=== PATIENT | male | born 1960 | race Caucasian/White ===

== ENCOUNTER 2018-01-02 22:43 | Inpatient (IN) | payer OTHER ==
[2018-01-02 23:39] VITALS: BMI 27.3
[2018-01-03] MEDS ORDERED: SODIUM CHLORIDE 0.9% 1000 ML INFUS.BAG IV ONE
[2018-01-03] MEDS ORDERED: LORazepam 2 MG/ML SDV VIAL ONE ×4 (00:05→12:27)
--- NOTE | 2018-01-03 00:20 | PDOC ---
History of Present Illness - General History Source: Patient Exam Limitations: No Limitations - History of Present Illness Initial Comments: 01/03/18 00:26 The patient is a 57 year old male, who was currently at [facility] requesting detox with a significant PMH of alcohol abuse who presents to the emergency department with alcohol intoxication and tachycardia. Patient was at [facility] requesting detox and was sent in for evaluation of tachycardia. Patient has a heart rate of 122 here in the ER. Patient states his last drink was 6-7 hours ago. As per the , patient has been abusing ambien but has run out of it at home. The patient denies chest pain, shortness of breath, headache and dizziness. Denies fever, chills, nausea, vomit, diarrhea and constipation. Denies dysuria, frequency, urgency and hematuria. Allergies: NKA Past surgical history: None reported. Social history: No reported alcohol, drug or cigarette use. <Cheryl Pisano - Last Filed: 01/03/18 00:28> - General History Source: Patient Exam Limitations: No Limitations <Luda Sears - Last Filed: 01/03/18 03:09> - General Chief Complaint: Tachycardia Stated Complaint: CHEST PAIN Time Seen by Provider: 01/02/18 23:17 Past History <Cheryl Pisano - Last Filed: 01/03/18 00:28> - Suicide/Smoking/Psychosocial Hx Smoking History: Former smoker Have you smoked in the past 12 months: No Information on smoking cessation initiated: No Hx Alcohol Use: No Drug/Substance Use Hx: No <Luda Sears - Last Filed: 01/03/18 03:09> - Past Medical History Allergies/Adverse Reactions: Allergies Allergy/AdvReac Type Severity Reaction Status Date / Time No Known Allergies Allergy Verified 01/02/18 23:23 Home Medications: Ambulatory Orders NK [No Known Home Medication] 01/02/18 Review of Systems - Review of Systems Able to Perform ROS?: Yes Comments:: 01/03/18 00:27 ADULT ROS GENERAL/CONSTITUTIONAL: No fever or chills. No weakness. HEAD, EYES, EARS, NOSE AND THROAT: No change in vision. No ear pain or discharge. No sore throat. CARDIOVASCULAR: No chest pain or shortness of breath. RESPIRATORY: No cough, wheezing, or hemoptysis. GASTROINTESTINAL: No nausea, vomiting, diarrhea or constipation. GENITOURINARY: No dysuria, frequency, or change in urination. MUSCULOSKELETAL: No joint or muscle swelling or pain. No neck or back pain. SKIN: No rash NEUROLOGIC: No headache, vertigo, loss of consciousness, or change in strength/ sensation. ENDOCRINE: No increased thirst. No abnormal weight change. HEMATOLOGIC/LYMPHATIC: No anemia, easy bleeding, or history of blood clots. ALLERGIC/IMMUNOLOGIC: No hives or skin allergy. <Cheryl Pisano - Last Filed: 01/03/18 00:28> *Physical Exam - Vital Signs Last Vital Signs Temp Pulse Resp BP Pulse Ox 97.7 F 121 H 18 116/80 98 01/02/18 22:43 01/02/18 22:43 01/02/18 22:43 01/02/18 22:43 01/02/18 22:43 - Physical Exam Comments: 01/03/18 00:27 on exam pt is awake, pacing, tremulous. lungs are clear bilaterally heart reg tachycardia. no mrg. abd soft nt nd. ext wwp.l atraumatic. <Cheryl Pisano - Last Filed: 01/03/18 00:28> - Vital Signs Last Vital Signs Temp Pulse Resp BP Pulse Ox 97.7 F 121 H 18 116/80 98 01/02/18 22:43 01/02/18 22:43 01/02/18 22:43 01/02/18 22:43 01/02/18 22:43 <Luda Sears - Last Filed: 01/03/18 03:09> Moderate Sedation - Procedure Monitoring Vital Signs: Procedure Monitoring Vital Signs Temperature 97.7 F 01/02/18 22:43 Pulse Rate 121 H 01/02/18 22:43 Respiratory Rate 18 01/02/18 22:43 Blood Pressure 116/80 01/02/18 22:43 O2 Sat by Pulse Oximetry (%) 98 01/02/18 22:43 <Cheryl Pisano - Last Filed: 01/03/18 00:28> - Procedure Monitoring Vital Signs: Procedure Monitoring Vital Signs Temperature 97.7 F 01/02/18 22:43 Pulse Rate 121 H 01/02/18 22:43 Respiratory Rate 18 01/02/18 22:43 Blood Pressure 116/80 01/02/18 22:43 O2 Sat by Pulse Oximetry (%) 98 01/02/18 22:43 <Luda Sears - Last Filed: 01/03/18 03:09> Heart Score/ECG Review #1 General ECG Interpretation: Sinus Rhythm, Normal Intervals, No acute ischemic changes Compared to previous ECG there are: Other (sinus tachycardia 124 TWI III only.) <Luda Sears - Last Filed: 01/03/18 03:09> ED Treatment Course - LABORATORY CBC & Chemistry Diagram: 01/03/18 00:10 01/03/18 00:10 <Luda Sears - Last Filed: 01/03/18 03:09> Medical Decision Making - Medical Decision Making 01/03/18 00:16 57 yo male with h/o etoh abuse, here from [facility] where he was seekign admission for detox. states he was abusing ambien, ran out a few weeks ago. states he has been binging on etoh. denies abuse of cocain or heroin, no other drug use. on exam pt is awake, pacing, tremulous. lungs are clear bilaterally heart reg tachycardia. no mrg. abd soft nt nd. ext wwp.l atraumatic. differential intox, other intox, benzo or etoh withdrawal, infection such as uti or pna, possible aspiration. pt denies cough or vomiting, anemia. plan labs ekg tox screen. given ativan for agitation, withdrawal. iv fluids. now at bedside. 01/03/18 03:08 pt with elevated wbc 17, concerns for possible aspiration as h/o n/v. questionable opacification right upper lobe vs. artifact. given ceftriaxone and azithromycin. hypomagnesium repleated. will order banana bag. <Luda Sears - Last Filed: 01/03/18 03:09> *DC/Admit/Observation/Transfer <Cheryl Pisano - Last Filed: 01/03/18 00:28> - Discharge Dispostion Decision to Admit order: Yes <Luda Sears - Last Filed: 01/03/18 03:09> Diagnosis at time of Disposition: Pneumonia, Alcohol withdrawal, Hypoxia - Discharge Dispostion Condition at time of disposition: Fair
[2018-01-03 00:50] LABS: BASO % 0.4 % (0-2.0); HEMATOCRIT 42.7 % (35.4-49); HEMOGLOBIN 15.2 GM/dL (11.7-16.9); LYMPH % 24.8 % (8-40); MCH 28.8 pg (25.7-33.7); MCHC 35.6 g/dl (32.0-35.9); MEAN PLT VOLUME 7.9 fl (7.5-11.1); MONO % 7.7 % (3.8-10.2); NEUT % 67.1 % (42.8-82.8); PLATELET COUNT 254 K/MM3 (134-434); RBC 5.28 M/mm3 (4.00-5.60); RDW 12.3 % (11.9-15.9); WHITE BLOOD COUNT 17.4 K/mm3 (4.0-10.0)
[2018-01-03 01:14] LABS: ALBUMIN 4.3 g/dl (3.4-5.0); ALK PHOS 86 U/L (45-117); ANION GAP 10 MMOL/L (8-16); BLOOD UREA NITROGEN 12 mg/dL (7-18); CALCIUM 8.3 mg/dL (8.5-10.1); CHLORIDE 98 mmol/L (98-107); CO2 28 mmol/L (21-32); GLUCOSE,RANDOM 157 mg/dL (74-106); POTASSIUM 3.9 mmol/L (3.5-5.1); SGOT/AST 53 U/L (15-37); SGPT/ALT 60 U/L (13-61); SODIUM 136 mmol/L (136-145); TOT PROT 7.8 g/dl (6.4-8.2)
[2018-01-03] MEDS ORDERED: MAGNESIUM SULF 50% (8.12 MEQ/2 ML-1 GM VIAL) IVPB ONE ×2 (01:49→03:09)
[2018-01-03] MEDS ORDERED: CEFTRIAXONE 1,000 MG in DEXTROSE 5%-WATER - 50 ML IVPB ONE (01:51)
[2018-01-03] MEDS ORDERED: ALBUTEROL SO4 2.5/IPRATROPIUM 0.5 INH SOL 3 ML VIAL.NEB. NEB ONE ×2 (01:51→02:39)
[2018-01-03] MEDS ORDERED: AZITHROMYCIN IVPB 250 MG in DEXTROSE 5%-WATER - 250 ML IVPB ONE (01:51)
[2018-01-03] MEDS ORDERED: AZITHROMYCIN IVPB 500 MG/250 ML BAG IVPB ONE (02:36)
[2018-01-03] MEDS ORDERED: MAGNESIUM 1GM/D5W - 2 GM/200 ML IVPB IVPB ONE ×2 (02:36→04:00)
[2018-01-03] MEDS ORDERED: FOLIC ACID INJECTION - 1 MG, THIAMINE HCL 100 MG, MULTIVIT INJECTION ADULT 10 ML in SOD... IVPB ONE (03:09)
--- NOTE | 2018-01-03 03:46 | HP ---
CHIEF COMPLAINT: Alcohol Detox, sent from [facility] prior to admission for tachycardia PCP: HISTORY OF PRESENT ILLNESS: 57 yo male with PMH of alcohol and ambien abuse presented to the ED after being sent from [facility] prior to admission for alcohol detox due to Tachycardia in the 140s. He is unable to give an accurate history however is present at the bedside. She states that he recently has been abusing Ambien. He was prescribed 30 pills last week which he has now run out of. He adds that he was getting them "from the black market too." It is unclear how many he has taken recently, though he states he ran out and began to use alcohol instead. He is currently intoxicated. His states he is not an every day drinker but can go quite a while without alcohol but then "falls off the wagon and goes on a binge." It is unclear how much alcohol he has consumed in the last few days since he ran out of ambien. He denies any history of seizures, though he states he has gone through withdrawal from alcohol in the past. He currently denies any fevers, chills, n/v/d. ER course was notable for: (1) CXR with possible infiltrate in R upper lobe (2) Ceftriaxone, azithromycin (3) Ativan 2 mg IV X 3, banana bag, Recent Travel: PAST MEDICAL HISTORY: Polysubstance abuse PAST SURGICAL HISTORY: unable to obtain Social History: Smoking: Denies Alcohol: Chronic alcohol abuse Drugs: Denies other than Ambien Family History: Allergies No Known Allergies Allergy (Verified 01/02/18 23:23) HOME MEDICATIONS: Home Medications Medication Instructions Recorded NK [No Known Home Medication] 01/02/18 REVIEW OF SYSTEMS CONSTITUTIONAL: Absent: fever, chills, diaphoresis, generalized weakness, malaise, loss of appetite, weight change HEENT: Absent: rhinorrhea, nasal congestion, throat pain, throat swelling, difficulty swallowing, mouth swelling, ear pain, eye pain, visual changes CARDIOVASCULAR: Absent: chest pain, syncope, palpitations, irregular heart rate, lightheadedness , peripheral edema RESPIRATORY: Absent: cough, shortness of breath, dyspnea with exertion, orthopnea, wheezing, stridor, hemoptysis GASTROINTESTINAL: Absent: abdominal pain, abdominal distension, nausea, vomiting, diarrhea, constipation, melena, hematochezia GENITOURINARY: Absent: dysuria, frequency, urgency, hesitancy, hematuria, flank pain, genital pain MUSCULOSKELETAL: Absent: myalgia, arthralgia, joint swelling, back pain, neck pain SKIN: Absent: rash, itching, pallor HEMATOLOGIC/IMMUNOLOGIC: Absent: easy bleeding, easy bruising, lymphadenopathy, frequent infections ENDOCRINE: Absent: unexplained weight gain, unexplained weight loss, heat intolerance, cold intolerance NEUROLOGIC: Absent: headache, focal weakness or paresthesias, dizziness, unsteady gait, seizure, mental status changes, bladder or bowel incontinence PSYCHIATRIC: Absent: anxiety, depression, suicidal or homicidal ideation, hallucinations. PHYSICAL EXAMINATION Vital Signs - 24 hr 01/02/18 22:43 Temperature 97.7 F Pulse Rate 121 H Respiratory 18 Rate Blood Pressure 116/80 O2 Sat by Pulse 98 Oximetry (%) GENERAL: Awake, in no acute distress. HEAD: Normal with no signs of trauma. EYES: Pupils equal, round and reactive to light, EARS, NOSE, THROAT: oropharynx clear without exudates. Moist mucous membranes. NECK: Normal range of motion, supple without lymphadenopathy, JVD, or masses. LUNGS: Breath sounds equal, clear to auscultation bilaterally. No wheezes, and no crackles. No accessory muscle use. HEART: Regular rate and rhythm, normal S1 and S2 without murmur, rub or gallop. ABDOMEN: Soft, nontender, not distended, normoactive bowel sounds, no guarding, no rebound, no masses. No hepatomegaly or splenomegaly. MUSCULOSKELETAL: Normal range of motion at all joints. No bony deformities or tenderness. No CVA tenderness. UPPER EXTREMITIES: 2+ pulses, warm, well-perfused. No cyanosis. No clubbing. No peripheral edema. LOWER EXTREMITIES: 2+ pulses, warm, well-perfused. No calf tenderness. No peripheral edema. NEUROLOGICAL: Cranial nerves II-XII intact. Normal speech. Normal gait. PSYCHIATRIC: Cooperative. Good eye contact. Appropriate mood and affect. SKIN: Warm, dry, normal turgor, no rashes or lesions noted, normal capillary refill. Laboratory Results - last 24 hr 01/03/18 01/03/18 01/03/18 00:10 00:10 00:10 WBC 17.4 H RBC 5.28 Hgb 15.2 Hct 42.7 MCV 81.0 MCH 28.8 MCHC 35.6 RDW 12.3 Plt Count 254 MPV 7.9 Absolute Neuts (auto) 11.7 H Neutrophils % 67.1 Lymphocytes % 24.8 Monocytes % 7.7 Eosinophils % 0.0 Basophils % 0.4 Nucleated RBC % 0 Sodium 136 Potassium 3.9 Chloride 98 Carbon Dioxide 28 Anion Gap 10 BUN 12 Creatinine 1.0 Creat Clearance w eGFR > 60 Random Glucose 157 H Calcium 8.3 L Magnesium 1.6 L Total Bilirubin 1.0 AST 53 H ALT 60 Alkaline Phosphatase 86 Total Protein 7.8 Albumin 4.3 Alcohol, Quantitative 264.3 H ASSESSMENT/PLAN: 57 yo male with PMH of alcohol and ambien abuse presented to the ED after being sent from [facility] prior to admission for alcohol detox due to Tachycardia in the 140s. Polysubstance Abuse -Undetermined amount of Ambien use in the last week, followed by extensive alcohol use -CIWA of 4 upon my evaluation, no signs of acute DTs -Continue ativan PRN for withdrawal symptoms Suspected Possible Pneumonia, CAP vs Aspiration -Levaquin and Clinda recommended, pt received dose of Azithromycin and Ceftriaxone -CXR noted with possible RUL infiltrate, await official Lactic Acidosis -LR @ 100 cc/hr -Repeat lactic acid Tachycardia -140s at [facility] sent to ED for evaluation prior to admission to detox -Possibly secondary to withdrawal from alcohol -Improved with ativan in ED though still tachycardic DVT Prophylaxis -Lovenox 40 mg SQ Daily FEN -Fluids: LR @ 100 cc/hr -Electrolytes: HypoKalemia, Mg 1.6, BMP in AM -Nutrition: Regular diet Disposition Telemetry Visit type - Emergency Visit Emergency Visit: Yes ED Registration Date: 01/03/18 Care time: The patient presented to the Emergency Department on the above date and was hospitalized for further evaluation of their emergent condition. - New Patient This patient is new to me today: Yes Date on this admission: 01/03/18 - Critical Care Critical Care patient: No
[2018-01-03] MEDS ORDERED: CEFTRIAXONE 1 GM/50 ML BAG ONE (03:59)
--- NOTE | 2018-01-03 04:01 | PN ---
Teaching Attending Note Name of Resident: Hakan Gómez ATTENDING PHYSICIAN STATEMENT I saw and evaluated the patient. I reviewed the resident's note and discussed the case with the resident. I agree with the resident's findings and plan as documented. SUBJECTIVE: Seen and examined; please see resident note for further historical information. In summation this is a 57 y/o male presenting to the ER with tachycardia and who was found to have an elevated lactate; he was sent here when he came to [facility] seeking EtOh detox. He has been through withdrawal before and has sporadically abused alcohol for years per the family with his most recent binge being in the past several days. He was taking large amounts of ambien and buying additional medication from the streets. Today his and him were concerned for the drinking so they went to the facility when they were directed to the ER because of his HR. He was given fluids and antibiotics in the ER as pneumonia was suspected. He will be admitted to telemetry on the medicine service. 10 sys ROS done and negative aside from HPI PMH and PSH reviewed FH asked and noncontributory Social history significant for alcohol abuse and controlled substance abuse; he admits to ambien and his Utox is positive for BZD. OBJECTIVE: VS, labs, imaging reviewed NAD, Resting in bed, sweaty, slightly tremulous Tachycardic with regular rhythm s1/2 NT ND +BS No meningeal signs; NC AT EOMI CN2-12 grossly intact, appears intoxicated Poor insight to his alcohol use, appropriate behavior, normal mood NC AT EOMI PERRLA Labs show an elevated WBC to 17, +Utox for BZD, EtOH level positive in ER to 200s CXR shows Tele shows sinus tachy ASSESSMENT AND PLAN: Patient presents from [facility] for sinus tachycardia and alcohol withdrawal; he has a positive lactate and suspected pneumonia 1) Elevated lactate -he is not frankly septic and the pneumonia doens't seem to be quite severe and even debatably present on the xray and only a minor cough. He is at risk for aspiration, etc. I will place him on levaquin and clinda empirically; cultures pending, urine Ag's pending, checking ESR and CRP. -Could be due to acute intoxication/WD. Hydrating emprically and trending down 2) Suspected pneumonia -Empiric levaquin and clindamycin as would be CAP but with risk of aspiration. Consider further imaging if needed. Debatably a pneumonia. Cultures pending 3) EtOH WD/Abuse -Slightly shakey in the ER but with a + EtOH level. Either profound abuse that he WD's when he is still intoxicated or he was still shakey because of how impaired he is. Neuro checks and seizure precautions ordered 4) Alcohol and Drug Abuse -Refer to [facility] on DC; is contemplative and willing to take action 5) Tachycardia -Wide ddx; treating underlying issues. Monitor tele, checking echo. Sinus tachy on the monitor. Full Code
[2018-01-03 05:09] LABS: COCAINE, UR NEGATIVE ng/ml (CUTOFF=300); METHADONE, UR NEGATIVE ng/ml (CUTOFF=300); OPIATES, URI NEGATIVE ng/ml (CUTOFF=300); PHENCYCLIDINE,URINE NEGATIVE ng/ml (CUTOFF=25); URINE AMPHETAMINES NEGATIVE ng/ml (CUTOFF=500); URINE BARBITURATES NEGATIVE ng/ml (CUTOFF=200)
[2018-01-03 05:26] LABS: URINE BENZODIAZEPINES POSITIVE ng/ml (CUTOFF=200)
[2018-01-03 06:49] LABS: BASO % 0.5 % (0-2.0); HEMATOCRIT 37.3 % (35.4-49); HEMOGLOBIN 13.2 GM/dL (11.7-16.9); LYMPH % 11.2 % (8-40); MCH 28.7 pg (25.7-33.7); MCHC 35.5 g/dl (32.0-35.9); MEAN CELL VOLUME 80.9 fl (80-96); MEAN PLT VOLUME 7.8 fl (7.5-11.1); MONO % 10.5 % (3.8-10.2); NEUT % 77.8 % (42.8-82.8); PLATELET COUNT 176 K/MM3 (134-434); RBC 4.61 M/mm3 (4.00-5.60); RDW 12.1 % (11.9-15.9); WHITE BLOOD COUNT 14.1 K/mm3 (4.0-10.0)
[2018-01-03] MEDS ORDERED: LACTATED RINGERS SOLUTION 1,000 ML/1,000 ML INFUS.BAG IV SCH (07:15)
[2018-01-03 07:17] LABS: URINE APPEARANCE CLEAR; URINE BILIRUBIN NEGATIVE (<2.0 mg/dL); URINE COLOR YELLOW; URINE GLUCOSE (UA) NEGATIVE (NEGATIVE); URINE KETONE TRACE (NEGATIVE); URINE LEUK ESTERASE NEGATIVE (NEGATIVE); URINE NITRITE NEGATIVE (NEGATIVE); URINE PROTEIN 1+ (NEGATIVE); URINE UROBILINOGEN NEGATIVE mg/dL (0.2-1.0)
[2018-01-03 08:37] LABS: ALBUMIN 3.5 g/dl (3.4-5.0); ALK PHOS 70 U/L (45-117); ANION GAP 10 MMOL/L (8-16); BLOOD UREA NITROGEN 12 mg/dL (7-18); CALCIUM 7.1 mg/dL (8.5-10.1); CHLORIDE 99 mmol/L (98-107); CO2 26 mmol/L (21-32); CREATININE 0.7 mg/dL (0.55-1.3); GLUCOSE,RANDOM 207 mg/dL (74-106); MAGNESIUM 3.1 mg/dL (1.8-2.4); PHOSPHOROUS 1.5 mg/dL (2.5-4.9); POTASSIUM 3.9 mmol/L (3.5-5.1); SGOT/AST 41 U/L (15-37); SGPT/ALT 49 U/L (13-61); SODIUM 135 mmol/L (136-145); TOT PROT 6.5 g/dl (6.4-8.2)
[2018-01-03 08:55] LABS: EPI CELLS RARE /HPF (FEW)
[2018-01-03] MEDS ORDERED: POTASSIUM PHOSPHATE 30 MM in SODIUM CHLORIDE 500 ML IVPB ONE (09:48)
[2018-01-03] MEDS ORDERED: ENOXAPARIN NA (PORCINE) 40 MG/0.4 ML DISP.SYRIN SQ SCH (10:00)
--- NOTE | 2018-01-03 10:12 | PN ---
Physical Exam: SUBJECTIVE: OBJECTIVE: Vital Signs Period Temp Pulse Resp BP Sys/Mccrary Pulse Ox Last 24 Hr 97.7 F 121 18 116/80 98 GENERAL: The patient is awake, alert, and fully oriented, in no acute distress. HEAD: Normal with no signs of trauma. EYES: Sclera anicteric, conjunctiva clear. No ptosis. ENT: Ears normal, nares patent, oropharynx clear without exudates, moist mucous membranes. LUNGS: Breath sounds equal, clear to auscultation bilaterally, no wheezes, no crackles, no accessory muscle use. HEART: Tachycardic, regular rate and rhythm, S1, S2 without murmur, rub or gallop. ABDOMEN: Soft, nontender, nondistended, normoactive bowel sounds, no guarding, no rebound, no hepatosplenomegaly, no masses. EXTREMITIES: 2+ dorsal pedal pulses, warm, well-perfused, no calf tenderness, no edema fine muscle tremors in hands. NEUROLOGICAL: Normal speech, gait not observed. PSYCH: Normal mood, normal affect. SKIN: Warm, dry, normal turgor, no rashes or lesions noted Laboratory Results - last 24 hr 01/03/18 01/03/18 01/03/18 00:10 00:10 00:10 WBC 17.4 H RBC 5.28 Hgb 15.2 Hct 42.7 MCV 81.0 MCH 28.8 MCHC 35.6 RDW 12.3 Plt Count 254 MPV 7.9 Absolute Neuts (auto) 11.7 H Neutrophils % 67.1 Lymphocytes % 24.8 Monocytes % 7.7 Eosinophils % 0.0 Basophils % 0.4 Nucleated RBC % 0 Sodium 136 Potassium 3.9 Chloride 98 Carbon Dioxide 28 Anion Gap 10 BUN 12 Creatinine 1.0 Creat Clearance w eGFR > 60 Random Glucose 157 H Lactic Acid Calcium 8.3 L Phosphorus Magnesium 1.6 L Total Bilirubin 1.0 AST 53 H ALT 60 Alkaline Phosphatase 86 C-Reactive Protein Total Protein 7.8 Albumin 4.3 Urine Color Urine Appearance Urine pH Ur Specific Almond Urine Protein Urine Glucose (UA) Urine Ketones Urine Blood Urine Nitrite Urine Bilirubin Urine Urobilinogen Ur Leukocyte Esterase Urine WBC (Auto) Urine RBC (Auto) Ur Epithelial Cells Salicylates Opiates Screen Methadone Screen Acetaminophen Barbiturate Screen Phencyclidine Screen Ur Amphetamines Screen MDMA (Ecstasy) Screen Benzodiazepines Screen Cocaine Screen U Marijuana (THC) Screen Alcohol, Quantitative 264.3 H 01/03/18 01/03/18 01/03/18 02:55 02:55 02:55 WBC RBC Hgb Hct MCV MCH MCHC RDW Plt Count MPV Absolute Neuts (auto) Neutrophils % Lymphocytes % Monocytes % Eosinophils % Basophils % Nucleated RBC % Sodium Potassium Chloride Carbon Dioxide Anion Gap BUN Creatinine Creat Clearance w eGFR Random Glucose Lactic Acid 6.1 H* Calcium Phosphorus Magnesium Total Bilirubin AST ALT Alkaline Phosphatase C-Reactive Protein Total Protein Albumin Urine Color Yellow Urine Appearance Clear Urine pH 6.0 Ur Specific Almond 1.012 Urine Protein 1+ H Urine Glucose (UA) Negative Urine Ketones Trace H Urine Blood Negative Urine Nitrite Negative Urine Bilirubin Negative Urine Urobilinogen Negative Ur Leukocyte Esterase Negative Urine WBC (Auto) 1 Urine RBC (Auto) 1 Ur Epithelial Cells Rare Salicylates Opiates Screen Negative Methadone Screen Negative Acetaminophen Barbiturate Screen Negative Phencyclidine Screen Negative Ur Amphetamines Screen Negative MDMA (Ecstasy) Screen Negative Benzodiazepines Screen Positive A* Cocaine Screen Negative U Marijuana (THC) Screen Negative Alcohol, Quantitative 01/03/18 01/03/18 01/03/18 06:10 06:10 08:15 WBC 14.1 H RBC 4.61 Hgb 13.2 Hct 37.3 MCV 80.9 MCH 28.7 MCHC 35.5 RDW 12.1 Plt Count 176 D MPV 7.8 Absolute Neuts (auto) 11.0 H Neutrophils % 77.8 Lymphocytes % 11.2 D Monocytes % 10.5 H Eosinophils % 0.0 Basophils % 0.5 Nucleated RBC % 0 Sodium 135 L Potassium 3.9 Chloride 99 Carbon Dioxide 26 Anion Gap 10 BUN 12 Creatinine 0.7 Creat Clearance w eGFR > 60 Random Glucose 207 H Lactic Acid 4.6 H* Calcium 7.1 L Phosphorus 1.5 L Magnesium 3.1 H Total Bilirubin 1.0 AST 41 H ALT 49 Alkaline Phosphatase 70 C-Reactive Protein 2.5 H Total Protein 6.5 Albumin 3.5 Urine Color Urine Appearance Urine pH Ur Specific Almond Urine Protein Urine Glucose (UA) Urine Ketones Urine Blood Urine Nitrite Urine Bilirubin Urine Urobilinogen Ur Leukocyte Esterase Urine WBC (Auto) Urine RBC (Auto) Ur Epithelial Cells Salicylates Opiates Screen Methadone Screen Acetaminophen Barbiturate Screen Phencyclidine Screen Ur Amphetamines Screen MDMA (Ecstasy) Screen Benzodiazepines Screen Cocaine Screen U Marijuana (THC) Screen Alcohol, Quantitative 01/03/18 08:30 WBC RBC Hgb Hct MCV MCH MCHC RDW Plt Count MPV Absolute Neuts (auto) Neutrophils % Lymphocytes % Monocytes % Eosinophils % Basophils % Nucleated RBC % Sodium Potassium Chloride Carbon Dioxide Anion Gap BUN Creatinine Creat Clearance w eGFR Random Glucose Lactic Acid Calcium Phosphorus Magnesium Total Bilirubin AST ALT Alkaline Phosphatase C-Reactive Protein Total Protein Albumin Urine Color Urine Appearance Urine pH Ur Specific Almond Urine Protein Urine Glucose (UA) Urine Ketones Urine Blood Urine Nitrite Urine Bilirubin Urine Urobilinogen Ur Leukocyte Esterase Urine WBC (Auto) Urine RBC (Auto) Ur Epithelial Cells Salicylates < 1.7 L Opiates Screen Methadone Screen Acetaminophen < 10 L Barbiturate Screen Phencyclidine Screen Ur Amphetamines Screen MDMA (Ecstasy) Screen Benzodiazepines Screen Cocaine Screen U Marijuana (THC) Screen Alcohol, Quantitative Active Medications Current Medications Enoxaparin Sodium (Lovenox -) 40 mg SQ DAILY [facility] Folic Acid 1 mg/ Thiamine HCl 100 mg/ Multivitamins/Minerals 10 ml/ Sodium Chloride 1,000 mls @ 125 mls/hr IVPB ONCE ONE Stop: 01/03/18 11:08 Last Admin: 01/03/18 05:58 Dose: 125 mls/hr Lactated Ringer's (Lactated Ringers Solution) 1,000 ml in 1,000 mls @ 125 mls/ hr IV ASDIR [facility] Last Admin: 01/03/18 09:41 Dose: 125 mls/hr Potassium Phosphate 30 mm/ (Sodium Chloride) 510 mls @ 85 mls/hr IVPB ONCE ONE Stop: 01/03/18 15:47 Home Medications Medication Instructions Recorded NK [No Known Home Medication] 01/02/18 ASSESSMENT/PLAN:
[2018-01-03 10:49] VITALS: BP 123/77; PULSE 118; TEMP 97.9
[2018-01-03] MEDS ORDERED: chlordiazePOXIDE HCL 25 MG CAPSULE PO SCH (11:00)
--- NOTE | 2018-01-03 11:43 | EKG ---
Test Reason : Blood Pressure : / mmHG Vent. Rate : 124 BPM Atrial Rate : 124 BPM P-R Int : 142 ms QRS Dur : 084 ms QT Int : 308 ms P-R-T Axes : 057 032 015 degrees QTc Int : 442 ms SINUS TACHYCARDIA POSSIBLE LEFT ATRIAL ENLARGEMENT NONSPECIFIC T WAVE ABNORMALITY ABNORMAL ECG WHEN COMPARED WITH ECG OF 18-OCT-2007 18:30, NO SIGNIFICANT CHANGE WAS FOUND Confirmed by VALDEZ LEHMAN, MIKE ([id number]) on 01/03/2018 11:42:46 AM Referred By: Confirmed By:MIKE KELLOGG MD
[2018-01-03] MEDS ORDERED: LORazepam 2 MG/ML SDV VIAL IVPUSH ONE (12:21)
[2018-01-03] MEDS ORDERED: chlordiazePOXIDE HCL 25 MG CAPSULE PO PRN (12:21)
[2018-01-03] MEDS ORDERED: chlordiazePOXIDE HCL 25 MG CAPSULE ONE (12:28)
--- NOTE | 2018-01-03 13:57 | CON.PSY ---
Psychiatry Consult Chief Complaint: 57 yearv old Male with a history of Alcohol abuse, Patient had been spber for 4 yrs, apparantly went on a drinking binge, went to [facility] and 3was sent here for Tachycardia. Patient seen for capacity because he wants to leave. - Previous Psychiatric Treatment Outpatient: None Inpatient: None - Previous Substance Abuse Treatment Outpatient: More than 6 mos ago - Reason for Previous Treatment Reason for Previous Treatment: Alcohol Abuse - Current Medications Current Medications: Active Medications Chlordiazepoxide HCl (Librium -) 50 mg PO [id number] [facility] Stop: 01/04/18 05:01 Last Admin: 01/03/18 12:38 Dose: 50 mg Chlordiazepoxide HCl (Librium -) 25 mg PO [id number] FARRU[facility] Stop: 01/05/18 05:01 Chlordiazepoxide HCl (Librium -) 15 mg PO [id number] [facility]ARRU[facility] Stop: 01/06/18 05:01 Chlordiazepoxide HCl (Librium -) 25 mg PO Q4H PRN PRN Reason: WITHDRAWAL(CONT SUBST) Stop: 01/06/18 12:20 Chlordiazepoxide HCl (Librium -) 10 mg PO [id number] FARRUKH Stop: 01/07/18 05:01 Enoxaparin Sodium (Lovenox -) 40 mg SQ DAILY [facility] Last Admin: 01/03/18 10:19 Dose: 40 mg Lactated Ringer's (Lactated Ringers Solution) 1,000 ml in 1,000 mls @ 125 mls/ hr IV ASDIR [facility]ARRU[facility] Last Admin: 01/03/18 09:41 Dose: 125 mls/hr Potassium Phosphate 30 mm/ (Sodium Chloride) 510 mls @ 85 mls/hr IVPB ONCE ONE Stop: 01/03/18 15:47 Last Admin: 01/03/18 10:19 Dose: 85 mls/hr - Allergies Allergies: Allergies Allergy/AdvReac Type Severity Reaction Status Date / Time No Known Allergies Allergy Verified 01/02/18 23:23 - Current Living Status Usual Living Arrangement: With Spouse - Current Mental Status Evaluation Appearance: Well Groomed Attitude: Cooperative - Affect Affect: Full Range Appropriateness: Appropriate to Content - Mood Mood: Euthymic - Speech/Language Expressive: Coherent - Psychomotor Activity Psychomotor Activity: Normal - Thought Process Thought Process: Intact - Thought Content Hallucinations: Absent Delusions: Absent - Self Perception Self Perception: No Impairment - Cognition Attention: Alert Orientation: Time Memory, Immediate Recall: Intact Memory, Short Term: 3/3 Memory, Remote with Promptin/3 - Concentration Serial Sevens Intact: Yes Simple Calculations Intact: Yes - Abstraction Proverb Interpretation: Intact Judgement: Minimally Impaired - Insight Insight: Intact - Impulse Control Impulse Control: Minimally Impaired - Suicidal Ideation Suicidal Ideation: No - Homicidal Ideation Homicidal Ideation: No Assessment/Plan 1) Patient has the mental capacity to make decisions at this time. can sign out AMA
--- NOTE | 2018-01-03 14:20 | PN ---
Teaching Attending Note Name of Resident: Ban Seth ATTENDING PHYSICIAN STATEMENT I saw and evaluated the patient. I reviewed the resident's note and discussed the case with the resident. I agree with the resident's findings and plan as documented. SUBJECTIVE: seen at 10 am denies any SOB , or cough, has no CP . denies fever at home. OBJECTIVE: NAD, awake , alert oriented. no nystagmus Cv: RRR. no MRG Lungs: CTAB Ext : no edema , tremor in hands. Abd: soft, NT, Nd, no hepatosplenomegaly ASSESSMENT AND PLAN: 57 y/o man with h/o alcohol abuse who presented to [facility] and was found to have tachycardia to 140s so he was sent here. 1- Alcohol withdrawal: - give one time dose IV ativan - start librium protocol. - thiamine - no signs of wernicke's - replete electrolytes 2- Leukocytosis , and lactic acidosis: no clear source , could be from increased metabolism in setting of withdrawal , and also volume depletion . no signs of infection, no fever , clear cxray, clear lungs to exam. has no pyuria or urinary sx. no cough. - hold off Abx - if he shows signs of infection or cx grow then will treat . 3- Sinus tachy; due to withdrawal . EKG reviewed. 4- Patient requested to leave AMA . at this point I am unable to determine decision making capacity given his active withdrawal and questionable insight . Psych consult requested. Risks of worsening sx and falls, and seizure and possible resultant were explained to patient.
--- NOTE | 2018-01-03 14:53 | DS ---
Physical Exam: SUBJECTIVE: Pt. signed out AMA. OBJECTIVE: Vital Signs Period Temp Pulse Resp BP Sys/Mccrary Pulse Ox Last 24 Hr 97.7 F-97.9 F 118-121 18-18 116-123/77-80 95-98 PHYSICAL EXAM Pt. signed out AMA LABS Laboratory Results - last 24 hr 01/03/18 01/03/18 01/03/18 00:10 00:10 00:10 WBC 17.4 H RBC 5.28 Hgb 15.2 Hct 42.7 MCV 81.0 MCH 28.8 MCHC 35.6 RDW 12.3 Plt Count 254 MPV 7.9 Absolute Neuts (auto) 11.7 H Neutrophils % 67.1 Lymphocytes % 24.8 Monocytes % 7.7 Eosinophils % 0.0 Basophils % 0.4 Nucleated RBC % 0 ESR Sodium 136 Potassium 3.9 Chloride 98 Carbon Dioxide 28 Anion Gap 10 BUN 12 Creatinine 1.0 Creat Clearance w eGFR > 60 Random Glucose 157 H Lactic Acid Calcium 8.3 L Phosphorus Magnesium 1.6 L Total Bilirubin 1.0 AST 53 H ALT 60 Alkaline Phosphatase 86 C-Reactive Protein Total Protein 7.8 Albumin 4.3 Urine Color Urine Appearance Urine pH Ur Specific [place] Urine Protein Urine Glucose (UA) Urine Ketones Urine Blood Urine Nitrite Urine Bilirubin Urine Urobilinogen Ur Leukocyte Esterase Urine WBC (Auto) Urine RBC (Auto) Ur Epithelial Cells Salicylates Opiates Screen Methadone Screen Acetaminophen Barbiturate Screen Phencyclidine Screen Ur Amphetamines Screen MDMA (Ecstasy) Screen Benzodiazepines Screen Cocaine Screen U Marijuana (THC) Screen Alcohol, Quantitative 264.3 H 01/03/18 01/03/18 01/03/18 02:55 02:55 02:55 WBC RBC Hgb Hct MCV MCH MCHC RDW Plt Count MPV Absolute Neuts (auto) Neutrophils % Lymphocytes % Monocytes % Eosinophils % Basophils % Nucleated RBC % ESR Sodium Potassium Chloride Carbon Dioxide Anion Gap BUN Creatinine Creat Clearance w eGFR Random Glucose Lactic Acid 6.1 H* Calcium Phosphorus Magnesium Total Bilirubin AST ALT Alkaline Phosphatase C-Reactive Protein Total Protein Albumin Urine Color Yellow Urine Appearance Clear Urine pH 6.0 Ur Specific [place] 1.012 Urine Protein 1+ H Urine Glucose (UA) Negative Urine Ketones Trace H Urine Blood Negative Urine Nitrite Negative Urine Bilirubin Negative Urine Urobilinogen Negative Ur Leukocyte Esterase Negative Urine WBC (Auto) 1 Urine RBC (Auto) 1 Ur Epithelial Cells Rare Salicylates Opiates Screen Negative Methadone Screen Negative Acetaminophen Barbiturate Screen Negative Phencyclidine Screen Negative Ur Amphetamines Screen Negative MDMA (Ecstasy) Screen Negative Benzodiazepines Screen Positive A* Cocaine Screen Negative U Marijuana (THC) Screen Negative Alcohol, Quantitative 01/03/18 01/03/18 01/03/18 06:10 06:10 06:10 WBC 14.1 H RBC 4.61 Hgb 13.2 Hct 37.3 MCV 80.9 MCH 28.7 MCHC 35.5 RDW 12.1 Plt Count 176 D MPV 7.8 Absolute Neuts (auto) 11.0 H Neutrophils % 77.8 Lymphocytes % 11.2 D Monocytes % 10.5 H Eosinophils % 0.0 Basophils % 0.5 Nucleated RBC % 0 ESR 7 Sodium 135 L Potassium 3.9 Chloride 99 Carbon Dioxide 26 Anion Gap 10 BUN 12 Creatinine 0.7 Creat Clearance w eGFR > 60 Random Glucose 207 H Lactic Acid Calcium 7.1 L Phosphorus 1.5 L Magnesium 3.1 H Total Bilirubin 1.0 AST 41 H ALT 49 Alkaline Phosphatase 70 C-Reactive Protein 2.5 H Total Protein 6.5 Albumin 3.5 Urine Color Urine Appearance Urine pH Ur Specific [place] Urine Protein Urine Glucose (UA) Urine Ketones Urine Blood Urine Nitrite Urine Bilirubin Urine Urobilinogen Ur Leukocyte Esterase Urine WBC (Auto) Urine RBC (Auto) Ur Epithelial Cells Salicylates Opiates Screen Methadone Screen Acetaminophen Barbiturate Screen Phencyclidine Screen Ur Amphetamines Screen MDMA (Ecstasy) Screen Benzodiazepines Screen Cocaine Screen U Marijuana (THC) Screen Alcohol, Quantitative 01/03/18 01/03/18 08:15 08:30 WBC RBC Hgb Hct MCV MCH MCHC RDW Plt Count MPV Absolute Neuts (auto) Neutrophils % Lymphocytes % Monocytes % Eosinophils % Basophils % Nucleated RBC % ESR Sodium Potassium Chloride Carbon Dioxide Anion Gap BUN Creatinine Creat Clearance w eGFR Random Glucose Lactic Acid 4.6 H* Calcium Phosphorus Magnesium Total Bilirubin AST ALT Alkaline Phosphatase C-Reactive Protein Total Protein Albumin Urine Color Urine Appearance Urine pH Ur Specific [place] Urine Protein Urine Glucose (UA) Urine Ketones Urine Blood Urine Nitrite Urine Bilirubin Urine Urobilinogen Ur Leukocyte Esterase Urine WBC (Auto) Urine RBC (Auto) Ur Epithelial Cells Salicylates < 1.7 L Opiates Screen Methadone Screen Acetaminophen < 10 L Barbiturate Screen Phencyclidine Screen Ur Amphetamines Screen MDMA (Ecstasy) Screen Benzodiazepines Screen Cocaine Screen U Marijuana (THC) Screen Alcohol, Quantitative HOSPITAL COURSE: Date of Admission:01/03/18 Date of Discharge: 01/03/18 Pt. observed for Etoh Abuse and ambien overdose. [facility] was called, and they confirmed Pt. was not at risk for ambien overdose. Pt. given Ativan in ED. Pt. was seen by psychiatry and confirmed Pt. had capacity. Pt. was given Banana bag in ED. Pt. had EKG which showed tachycardia to 120s and possible left atrial enlargement. Pt. signed out AMA. CIWA score never was higher than 5 per multiple physicians assessments. Minutes to complete discharge: 32 Discharge Summary Reason For Visit: ALCOHOL WITHDRAWL SYNDROME,PNEUMONIA Current Active Problems Alcohol withdrawal (Acute) Hypoxia (Acute) Pneumonia (Acute) Condition: Fair - Instructions Diet, Activity, Other Instructions: Pt. left before Pt. could be evaluated. Per chart review Pt. signed AMA form and risks and benefits were explained. Disposition: LEFT BEFORE [facility] - Home Medications Comprehensive Discharge Medication List: Ambulatory Orders NK [No Known Home Medication] 01/02/18 This patient is new to me today: Yes Date on this admission: 01/03/18 Emergency Visit: Yes ED Registration Date: 01/03/18 Care time: The patient presented to the Emergency Department on the above date and was hospitalized for further evaluation of their emergent condition. Critical Care patient: No - Discharge Referral Referred to [facility] Med [facility].: No
[2018-01-04] MEDS ORDERED: chlordiazePOXIDE HCL 25 MG CAPSULE PO SCH (11:00)
[2018-01-05] MEDS ORDERED: chlordiazePOXIDE 5 MG CAPSULE PO SCH (11:00)
[2018-01-06] MEDS ORDERED: chlordiazePOXIDE HCL 10 MG CAPSULE PO SCH (11:00)
== END 2018-01-03 14:27 | disposition left against medical advice (07) | DRG 194 ==
LOC: JER 22:43 → JERBED 01-03 02:13
PROVIDERS: ADMIT Internal Medicine; ATTEND Internal Medicine
DX: J18.9 Pneumonia, unspecified organism (principal); F10.230 Alcohol dependence with withdrawal, uncomplicated; E87.2 Acidosis; R09.02 Hypoxemia; E87.6 Hypokalemia; F13.10 Sedative, hypnotic or anxiolytic abuse, uncomplicated; Y90.8 Blood alcohol level of 240 mg/100 ml or more
CPT/HCPCS: 36415; 71045-TC-FY; 80053; 80307; 81003; 81015; 83605; 83735; 84100; 85025; 85651; 86140; 87040; 87086; 93005; 93010; 99284-25; J7030